=== PATIENT | female | born 1960 | race Two or more races ===

== ENCOUNTER 2024-05-13 17:46 | Emergency (ER) | payer MEDICAID, SELFPAY ==
[2024-05-13 17:48] VITALS: BMI 28.1
--- NOTE | 2024-05-13 18:30 | XR_ITS ---
Examination: Hand, right 3 views Technique: Hand AP, oblique, lateral 3 views Date and time of exam: May 13, 2024 1857 hrs. Indications: Injured the hand 3 days ago, hand pain Findings: No acute fracture. No dislocation. No foreign body Impression: No acute fracture
--- NOTE | 2024-05-13 18:30 | EDNOTE_ITS ---
Upper Extremity Injury RME/HPI General Chief Complaint: Hand/Wrist Problems Stated Complaint: FB TO R THUMB Time Seen by Provider: 05/13/24 18:13 Arrival date/time: 05/13/24 17:46 RME / HPI RME / HPI narrative: Foreign body right thumb x 2 days. Seen at [facility] where a foreign body extraction was attempted. Patient was referred to hand specialist. Patient has not started antibiotic. Related Data Previous Rx's ?Medication ?Instructions ?Recorded acetaminophen 325 mg tablet 325 mg PO QID PRN pain #30 tabs 05/13/24 (Tylenol) doxycycline hyclate 100 mg capsule 100 mg PO BID #10 c aps 05/13/24 ibuprofen 800 mg tablet 800 mg PO Q8H PRN pain #14 t abs 05/13/24 sulfamethoxazole 800 1 tab PO BID 7 days #14 tabs 05/13/24 mg-trimethoprim 160 mg tablet (Bactrim DS) Allergies Allergy/AdvReac Type Severity Reaction Status Date / Time No Known Allergies Allergy Verified 05/13/24 17:47 Course Orders Category Date Time Status XR hand comp RT min 3V Stat Exams 05/13/24 18:30 Completed Ketorolac Inj [Toradol Inj] Med 05/13/24 18:30 Discontinued 30 mg IM X1 ONE Lidocaine 1% 20 ml [Xylocaine 1% 20 ML] Med 05/13/24 18:30 Discontinued 10 ml IM X1 ONE cephALEXin [Keflex] Med 05/13/24 18:31 Discontinued 500 mg PO X1 ONE Reevaluation(s) Reevaluation #1: Discussed need to follow-up with hand specialist. Patient vocalized understanding. Offered nerve block prior to discharge but patient declined. Patient was given antibiotic and analgesics in the department. Time: 20:17 Vital Signs Vital signs: Vital Signs Temperature 98.0 F 05/13/24 18:31 Pulse Rate 62 05/13/24 18:31 Respiratory Rate 16 05/13/24 18:31 Blood Pressure 153/76 H 05/13/24 18:31 Pulse Oximetry (%) 97 05/13/24 18:31 Oxygen Delivery Method Room Air 05/13/24 18:31 Extremity Injury Medications / Prescriptions Medication administrations:: Medication Administration History Discontinued Medications Cephalexin HCl (Cephalexin 250 Mg Capsule) 500 mg PO X1 ONE Stop: 05/13/24 18:32 Last Admin: 05/13/24 19:09 Dose: 500 mg Documented By: LUCIEN Ketorolac Tromethamine (Ketorolac Inj 60 Mg/2 Ml Vial) 30 mg IM X1 ONE Stop: 05/13/24 18:31 Last Admin: 05/13/24 19:09 Dose: 30 mg Documented By: LUCIEN Lidocaine HCl (Lidocaine Hcl 1% 20 Ml Vial) 10 ml IM X1 ONE Stop: 05/13/24 18:31 Last Admin: 05/13/24 19:11 Dose: 10 ml Documented By: LUCIEN Discharge Plan Plan Patient Disposition: HOME (Self Care) Disposition Comment: stable Prescriptions/Referrals Prescriptions/Med Rec: New doxycycline hyclate 100 mg capsule 100 mg PO BID Qty: 10 0RF sulfamethoxazole-trimethoprim [Bactrim DS] 800-160 mg tablet 1 tab PO BID 7 Days Qty: 14 0RF ibuprofen 800 mg tablet 800 mg PO Q8H PRN (Reason: pain) Qty: 14 0RF acetaminophen [Tylenol] 325 mg tablet 325 mg PO QID PRN (Reason: pain) Qty: 30 0RF Referrals: No Primary/Family,Physician [Primary Care Provider] - In 1 week Problem List Clinical Impression: Foreign body (FB) in soft tissue, Pain of right thumb Impression comment: Follow-up with your primary care doctor for hand specialist referral for possible deep foreign body removal. Take doxycycline twice daily for x 10 days. Take Bactrim twice daily for x 7 days. Take ibuprofen or Tylenol as needed every 6 hours for pain. Return to the ED if your symptoms worsen or change. Patient/Caregiver Discharge Instructions Education Materials: ED Foreign Body Soft Tissue Print Language: Yakut Stand Alone Forms: Leonie Award Info., Patient Portal Info Letter PA/SALES AND SERVICE SPECIALIST Supervising Physician PA/S[employer] AND SERVICE SPECIALIST Supervising Physician: Dr. Dowling
[2024-05-13 18:31] VITALS: BP 153/76; PULSE 62; RESP 16; TEMP 36.7; O2SAT 97
[2024-05-13] MEDS: KETOROLAC INJ 60 MG/2 ML VIAL 30 MG IM (19:09)
[2024-05-13] MEDS: cephALEXin 250 MG CAPSULE 500 MG PO (19:09)
[2024-05-13] MEDS: LIDOCAINE HCL 1% 20 ML VIAL 10 ML IM (19:11)
== END 2024-05-13 20:53 | disposition home or self-care (01) ==
PROVIDERS: Emergency Provider Emergency Medicine
DX: S60.351A Superficial foreign body of right thumb, initial encounter (principal); X58.XXXA Exposure to other specified factors, initial encounter
CPT/HCPCS: 73130; 96372; 99283; J1885; J3490; A9270